=== PATIENT | female | born 1990 | race Caucasian/White ===

== ENCOUNTER 2019-11-29 13:03 | Inpatient (IN) | payer MEDICAID ==
[~2019-11-29] VITALS: Ht 177.8 cm; Wt 66.6 kg
--- NOTE | 2019-11-29 13:13 | NUR ---
[facility]: EKG COMPLETED.
[2019-11-29 14:37] LABS: BASOPHILS # (AUTO) 0.02 x10^3/uL (0-0.1); BASOPHILS % (AUTO) 0 % (0-1); EOSINOPHILS % (AUTO) 0 % (1-7); LYMPHOCYTES # (AUTO) 1.93 x10^3/uL (1-3.4); LYMPHOCYTES % (AUTO) 19 % (22-44); MD NO; MEAN CORPUSCULAR HEMOGLOBIN 28.9 pg (27.0-34.8); MEAN CORPUSCULAR HGB CONC 33.7 g/dL (32.4-35.8); MEAN CORPUSCULAR VOLUME 85.9 fL (80-100); MEAN PLATELET VOLUME 6.9 fL (7.4-10.4); MONOCYTES # (AUTO) 0.53 x10^3/uL (0.2-0.8); MONOCYTES % (AUTO) 5 % (2-9); NEUTROPHILS % (AUTO) 76 % (42-75); PLATELET COUNT 297 x10^3/uL (130-400); RED BLOOD COUNT 5.28 x10^6/uL (3.82-5.3); RED CELL DISTRIBUTION WIDTH 13.8 % (9.6-15.2)
[2019-11-29 14:48] LABS: ALANINE AMINOTRANSFERASE 48 U/L (12-78); ALBUMIN 4.3 g/dL (3.4-5.0); ANION GAP 10 mmol/L (5-15); CHLORIDE 107 mmol/L (98-107); CREATININE 0.94 mg/dL (0.55-1.02)
[2019-11-29 14:53] LABS: ALKALINE PHOSPHATASE 88 U/L (45-117); BILIRUBIN,TOTAL 2.4 mg/dL (0.2-1.0); TOTAL PROTEIN 7.9 g/dL (6.4-8.2)
--- NOTE | 2019-11-29 17:35 | NUR ---
PT AMBULATORY TO BED, DOCTOR AT BEDSIDE, LIGHTS OFF TO PROMOTE REST.
[2019-11-29] MEDS ORDERED: LISINOPRIL 10 MG TABLET ONE (18:28)
[2019-11-29] MEDS ORDERED: LORazepam 1MG TABLET ONE (18:28)
[2019-11-29] MEDS ORDERED: LISINOPRIL 10 MG TABLET PO ONE (18:30)
[2019-11-29] MEDS ORDERED: LORazepam 1MG TABLET PO ONE (18:30)
--- NOTE | 2019-11-29 18:36 | NUR ---
sweat seen on bed when patient sat up, pt states shes cold, and is actively shivering. questions about medications answered, pt on phone with family, breathing even and unlabored.
--- NOTE | 2019-11-29 18:58 | NUR ---
REPORT GIVEN TO TOLU HENRIQUEZ.
[2019-11-29] MEDS ORDERED: hydrALAzine 20 MG/ML, 1ML ONE (19:04)
--- NOTE | 2019-11-29 19:20 | NUR ---
Report received from TOLU Tony. This RN to assume care. Upon assessment of patient, mild tremors noted. Patient feels sweaty but no diaphoresis seen. BP high and trending up. Notified MD; meds ordered, IV established and meds admin per nov. Patient denies SAUER or dizziness. She states she has a hx of a CVA three years ago and a family hx of HTN. Addendum: 11/29/19 at 1922 by [email or web address] Patient also complains of mild CP but states it is improved from when she arrived.
[2019-11-29] MEDS ORDERED: hydrALAzine 20 MG/ML, 1ML IV ONE ×2 (19:30→21:00)
[2019-11-29] MEDS ORDERED: OMNIPAQUE 350 MG/ML, 100ML BOTTLE ONE (21:27)
[2019-11-29] MEDS ORDERED: POTASSIUM CHLORIDE 20 MEQ, MAGNESIUM SULFATE 2 GM, THIAMINE 200 MG, MVI ADULT 10 ML, FO... IV SCH (21:55)
[2019-11-29] MEDS ORDERED: ACETAMINOPHEN 325 MG TABLET PO PRN (22:00)
[2019-11-29] MEDS ORDERED: FOLIC ACID 5 MG/ML IM ONE (22:00)
[2019-11-29] MEDS ORDERED: PROMETHAZINE 25MG TABLET PO PRN (22:00)
[2019-11-29] MEDS ORDERED: LORazepam 2 MG/ML, 1ML IV PRN (22:00)
[2019-11-29] MEDS ORDERED: ENOXAPARIN 40 MG/0.4 ML SQ SCH (22:00)
[2019-11-29] MEDS ORDERED: OXYcodone IR 5MG TABLET PO PRN (22:00)
[2019-11-29] MEDS ORDERED: ONDANSETRON 2MG/ML, 2ML IV PRN (22:00)
[2019-11-29] MEDS ORDERED: LABETALOL 5MG/ML, 20ML IV PRN (22:00)
[2019-11-29 22:54] LABS: ALANINE AMINOTRANSFERASE 50 U/L (12-78); ALBUMIN 4.5 g/dL (3.4-5.0); BILIRUBIN, DIRECT 0.5 mg/dL (0.1-0.2)
[2019-11-29 22:58] LABS: ALKALINE PHOSPHATASE 83 U/L (45-117); BILIRUBIN,INDIRECT 1.8 mg/dL (0.0-2.0); BILIRUBIN,TOTAL 2.3 mg/dL (0.2-1.0); FREE T4 (FREE THYROXINE) 1.11 ng/dL (0.76-1.46); TROPONIN I < 0.015 ng/mL (0.000-0.045)
[2019-11-29 23:02] LABS: HCT (SEDRATE) 43.3 % (34.6-47.8)
[2019-11-30] MEDS ORDERED: ENOXAPARIN 40 MG/0.4 ML ONE (00:20)
--- NOTE | 2019-11-30 01:17 | NUR ---
Patient resting in hospital bed with no complaints. Provided crackers.
[2019-11-30 04:29] LABS: BASOPHILS # (AUTO) 0.05 x10^3/uL (0-0.1); BASOPHILS % (AUTO) 1 % (0-1); EOSINOPHILS # (AUTO) 0.05 x10^3/uL (0-0.4); EOSINOPHILS % (AUTO) 1 % (1-7); LYMPHOCYTES # (AUTO) 2.43 x10^3/uL (1-3.4); LYMPHOCYTES % (AUTO) 36 % (22-44); MD NO; MEAN CORPUSCULAR HEMOGLOBIN 28.6 pg (27.0-34.8); MEAN CORPUSCULAR HGB CONC 33.1 g/dL (32.4-35.8); MEAN CORPUSCULAR VOLUME 86.4 fL (80-100); MEAN PLATELET VOLUME 7.1 fL (7.4-10.4); MONOCYTES # (AUTO) 0.57 x10^3/uL (0.2-0.8); MONOCYTES % (AUTO) 8 % (2-9); NEUTROPHILS # (AUTO) 3.69 x10^3/uL (1.8-6.8); NEUTROPHILS % (AUTO) 54 % (42-75); PLATELET COUNT 246 x10^3/uL (130-400); RED BLOOD COUNT 5.09 x10^6/uL (3.82-5.3); RED CELL DISTRIBUTION WIDTH 14.3 % (9.6-15.2)
[2019-11-30 04:58] LABS: ANION GAP 7 mmol/L (5-15); CALCIUM 8.9 mg/dL (8.5-10.1); CHLORIDE 107 mmol/L (98-107); CHOLESTEROL, TOTAL 132 mg/dL (140-239); TRIGLYCERIDES 188 mg/dL (50-200); VLDL CHOLESTEROL 38 mg/dL (0-25)
[2019-11-30 05:02] LABS: CHOL/HDL RATIO 1.8; HDL CHOL % 57 % (28-40); HDL CHOLESTEROL (DIRECT) 75 mg/dL (40-60); LDL CHOLESTEROL,CALCULATED 19 mg/dL (54-169); LDL/HDL RATIO 0.3 (0.5-3.0); TROPONIN I < 0.015 ng/mL (0.000-0.045)
[2019-11-30] MEDS ORDERED: PANTOPRAZOLE 40 MG IV IVPush SCH (07:30)
--- NOTE | 2019-11-30 07:41 | NUR ---
ROZ RN NOTE: PT WENT TO BATHROOM WITH STABLE GAIT VSS STABLE PT C/O NAUSEA AND HUNGRY NOTIFIED TO PRIMARY RN OTHERWISE NO NEEDS DENIED PAIN CALL LIGHT WITHIN REACH PTIS ON HOSPITAL BED
[2019-11-30] MEDS ORDERED: REGADENOSON 0.4 MG/5 ML SYRINGE ONE (08:25)
[2019-11-30] MEDS ORDERED: POTASSIUM CHLORIDE 20 MEQ TAB.ER.PRT ONE (08:27)
[2019-11-30] MEDS ORDERED: AMLODIPINE 5 MG TABLET ONE (08:27)
[2019-11-30] MEDS ORDERED: ONDANSETRON 2MG/ML, 2ML ONE (08:28)
[2019-11-30] MEDS ORDERED: PANTOPRAZOLE 40 MG IV ONE (08:28)
[2019-11-30 08:30] VITALS: BP 140/92
[2019-11-30] MEDS ORDERED: POTASSIUM CHLORIDE 20 MEQ TAB.ER.PRT PO SCH (08:30)
[2019-11-30] MEDS ORDERED: AMLODIPINE 5 MG TABLET PO SCH (09:00)
[2019-11-30] MEDS ORDERED: MULTIVITAMINS/MINERALS TABLET PO SCH (10:00)
--- NOTE | 2019-11-30 11:05 | NUR ---
Report to TOLU Pagan on Tele. Pt to be transported to [id number] via hospital bed.
[2019-11-30 11:15] LABS: AMPHETAMINE SCREEN, URINE Negative (Negative); BARBITURATE SCREEN, URINE Negative (Negative); BENZODIAZEPINE SCREEN, URINE Negative (Negative); CANNABINOID SCREEN, URINE Positive (Negative); COCAINE SCREEN, URINE Negative (Negative); METHADONE SCREEN, URINE Negative (Negative); OPIATE SCREEN, URINE Negative (Negative)
[2019-11-30 11:31] VITALS: BP 138/88
[2019-11-30 14:35] VITALS: BP 126/83
[2019-11-30] MEDS ORDERED: POTA20TA6 PO (15:16)
[2019-11-30] MEDS ORDERED: FOLI-17 PO (15:16)
[2019-11-30] MEDS ORDERED: THIA500T PO (15:16)
[2019-11-30] MEDS ORDERED: AMLO-150 PO (15:16)
[2019-11-30] MEDS ORDERED: POTASSIUM CHLORIDE 20 MEQ, MAGNESIUM SULFATE 2 GM, THIAMINE 200 MG, MVI ADULT 10 ML, FO... IV SCH (21:55)
[2019-12-01] MEDS ORDERED: THIAMINE 100 MG in DEXTROSE 5% 50 ML IVPB SCH (09:00)
== END 2019-11-30 15:50 | disposition home or self-care (01) | DRG 392 ==
LOC: ED 20:38 → EDIP 22:33 → 5SO 11-30 12:49 → DCLOUNGE 11-30 15:40
PROVIDERS: ADMIT Hospitalist; ATTEND Hospitalist
DX: K21.9 Gastro-esophageal reflux disease without esophagitis (principal); F10.231 Alcohol dependence with withdrawal delirium; I16.0 Hypertensive urgency; D72.829 Elevated white blood cell count, unspecified; E87.6 Hypokalemia; I10 Essential (primary) hypertension; Z82.49 Family history of ischemic heart disease and other diseases of the circulatory system; M41.9 Scoliosis, unspecified
CPT/HCPCS: 36415; 93017; 96374; 99285; J7042; 71046; 71275; 76700; 78452; 80048; 80053; 80061; 80076; 80307; 83735; 84100; 84439; 84443; 84484; 84703; 85025; 85379; 85651; 93005; J1650; J2405; J2785; J3411; J3475; J3480; Q9967; A9502; C9113; C9898; J0360